=== PATIENT | male | born 1965 | race Hispanic/Latino ===

== ENCOUNTER 2017-09-11 17:34 | Emergency (ER) | payer OTHER ==
[2017-09-11 17:59] VITALS: BP 136/82; PULSE 69; RESP 16; TEMP 98.4; O2SAT 98
--- NOTE | 2017-09-11 19:00 | ED PDOC ---
HPI: Skin/Bite Injury Time Seen by Provider: 09/11/17 18:15 Chief Complaint (Nursing): Abnormal Skin Integrity Chief Complaint (Provider): Facial laceration History Per: Patient History/Exam Limitations: no limitations Onset/Duration Of Symptoms: Hrs Additional Complaint(s): Patient is a 52 y/o male with no significant past medical history presenting to the emergency department for a left facial laceration. 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 Denies head injury, loss of consciousness, or any other complaints. Tetanus shot is up to date. PCP: none provided. Past Medical History Reviewed: Historical Data, Nursing Documentation, Vital Signs Vital Signs: Last Vital Signs Temp 98.4 F 09/11/17 17:55 Pulse 69 09/11/17 17:55 Resp 16 09/11/17 17:55 BP 136/82 09/11/17 17:55 Pulse Ox 98 09/11/17 19:06 - Medical History PMH: No Chronic Diseases - Surgical History Surgical History: No Surg Hx - Family History Family History: States: No Known Family Hx - Social History Current smoker - smoking cessation education provided: No Ex-Smoker (has not smoked in the last 12 months): No Alcohol: Social Drugs: Denies - Home Medications Home Medications: Ambulatory Orders Medication Instructions Recorded Bacitracin Ointment [Bacitracin] 0.5 gm TOP BID #1 tube 09/11/17 - Allergies Allergies/Adverse Reactions: Allergies Allergy/AdvReac Type Severity Reaction Status Date / Time No Known Allergies Allergy Verified 09/11/17 17:55 Review of Systems ROS Statement: Except As Marked, All Systems Reviewed And Found Negative Skin: Positive for: Other (left facial laceration) Neurological: Negative for: Other (loss of consciousness) Physical Exam - Reviewed Nursing Documentation Reviewed: Yes Vital Signs Reviewed: Yes - Physical Exam Appears: Positive for: Well, Non-toxic, No Acute Distress Head Exam: Positive for: NORMAL INSPECTION, NORMOCEPHALIC (with 2 cm laceration on left facial area noted) Skin: Positive for: Normal Color, Warm, Dry Eye Exam: Positive for: Normal appearance Neck: Positive for: Normal Cardiovascular/Chest: Positive for: Regular Rate, Rhythm Respiratory: Negative for: Accessory Muscle Use, Respiratory Distress Extremity: Positive for: Normal ROM Neurologic/Psych: Positive for: Alert, Oriented (x3) - ECG O2 Sat by Pulse Oximetry: 98 (RA) Pulse Ox Interpretation: Normal Medical Decision Making Medical Decision Making: Time: 18:45 Initial impression: left facial laceration ~ Scribe Attestation: Documented by Jennifer Rodriges, acting as a scribe for LEO Ramírez. Provider Scribe Attestation: All medical record entries made by the Scribe were at my direction and personally dictated by me. I have reviewed the chart and agree that the record accurately reflects my personal performance of the history, physical exam, medical decision making, and the department course for this patient. I have also personally directed, reviewed, and agree with the discharge instructions and disposition. Disposition - Clinical Impression Clinical Impression: Facial laceration - Patient ED Disposition Is Patient to be Admitted: No - Disposition Disposition: Routine/Home Disposition Time: 19:42 Condition: FAIR Additional Instructions: F/U WITH PMD/ED /URGENT CARE FOR REMOVAL OF FACIAL SUTURES IN 5 DAYS. Prescriptions: Bacitracin Ointment [Bacitracin] 0.5 gm TOP BID #1 tube Instructions: Laceration (DC) Forms: [place] ([place]estinian) Procedure: Wound Repair - Time Performed Time Performed: 19:41 - Time Out Time Out: Site verified - Consent Obtained Consent obtained: Verbal - Performed by Performed by: Mid-level Provider - Indications Indication(s):: Laceration - Location Location:: Left, Face Shape:: Linear Dimensions Length cm: 2.0CM Depth:: Epidermis - Anesthetic Technique Anesthetic Technique: Topical Local/Regional Anesthetic:: Lidocaine 2% w/epi - Irrigated Irrigated with ml of normal saline: 150ML - Complexity Complexity:: Simple (one layer) - Wound repair method Sutures:: # (6), Size (6-0), Type (NYLON), Technique (INTERRUPTED) - Patient tolerated procedure Patient Tolerated Procedure:: Well
== END 2017-09-11 19:58 | disposition home or self-care (01) ==
LOC: H.ER 17:34
DX: S01.81XA Laceration without foreign body of other part of head, initial encounter (principal); W26.8XXA Contact with other sharp object(s), not elsewhere classified, initial encounter; Y99.0 Civilian activity done for income or pay